=== PATIENT | male | born 1945 | race Caucasian/White ===

== ENCOUNTER 2022-07-06 12:45 | Outpatient (RCR) | payer MEDICARE, SELFPAY | END 2023-01-19 16:00 | disposition home or self-care (01) | LOC: HO.WCC 12:45 | PROVIDERS: PCP Internal Medicine; Visit Provider Physician Assistant | DX: L98.492 Non-pressure chronic ulcer of skin of other sites with fat layer exposed (principal); J95.09 Other tracheostomy complication; C49.0 Malignant neoplasm of connective and soft tissue of head, face and neck; J44.9 Chronic obstructive pulmonary disease, unspecified; Z79.2 Long term (current) use of antibiotics; Z79.899 Other long term (current) drug therapy; Z92.21 Personal history of antineoplastic chemotherapy; Z87.891 Personal history of nicotine dependence; Z92.3 Personal history of irradiation | CPT/HCPCS: 17250; 99212; 99213 ==

== ENCOUNTER 2023-05-28 08:49 | Outpatient (RCR) | payer MEDICARE, SELFPAY | END 2023-08-10 17:00 | disposition home or self-care (01) | LOC: HO.WCC 08:49 | PROVIDERS: PCP Internal Medicine; Visit Provider Physician Assistant | DX: L89.43 Pressure ulcer of contiguous site of back, buttock and hip, stage 3 (principal); C49.0 Malignant neoplasm of connective and soft tissue of head, face and neck; Z86.711 Personal history of pulmonary embolism | CPT/HCPCS: 11042 ==